=== PATIENT | female | born 1945 | race Caucasian/White ===

== ENCOUNTER 2023-09-03 14:21 | Emergency (ER) | payer MEDICARE, SELFPAY ==
[2023-09-03 14:34] VITALS: BP 112/90; PULSE 67; RESP 16; TEMP 36.5; O2SAT 98
--- NOTE | 2023-09-03 14:35 | ED.ANIMALBIT ---
HPI - Animal Bite General Chief Complaint: Wound/Laceration Stated Complaint: Dog Bite/Right Heel Source: patient and RN notes reviewed History of Present Illness HPI narrative: 78 yo F presents to urgent care with complaints of a dog bite to her left heel. Pt states night, her dog bit her heel. Pt states her dog sleeps with them and she has restless leg syndrome and she thinks she may have kicked him in her sleep. Pt has been soaking the wound and using a topical OTC ointment on it. Pt is UTD on her Tdap and the dog is UTD on his shots. Related Data Home Medications Medication Instructions Recorded Confirmed cholecalciferol (vitamin D3) 1,250 1,250 mcg PO DIRECTED 09/03/23 09/03/23 mcg (50,000 unit) capsule clonazepam 0.5 mg tablet 0.5 mg PO DIRECTED 09/03/23 09/03/23 hydrochlorothiazide 25 mg tablet 25 mg PO DIRECTED 09/03/23 09/03/23 meclizine 25 mg tablet 25 mg PO DIRECTED 09/03/23 09/03/23 metoprolol succinate 50 mg 50 mg PO DIRECTED 09/03/23 09/03/23 tablet,extended release 24 hr potassium chloride 10 mEq 10 meq PO DIRECTED 09/03/23 09/03/23 tablet,extended release venlafaxine 75 mg capsule,extended 75 mg PO DIRECTED 09/03/23 09/03/23 release 24 hr Allergies Allergy/AdvReac Type Severity Reaction Status Date / Time No Known Allergies Allergy Verified 09/03/23 14:40 Review of Systems Review of Systems: CONSTITUTIONAL: Denies fever, chills, or sweats. EYES: Denies visual changes, redness, or discharge. ENT: Denies otalgia and sore throat CARDIOVASCULAR: Denies chest pain, palpitations, or edema. RESPIRATORY: Denies cough or dyspnea. GASTROINTESTINAL: Denies abdominal pain, nausea, vomiting, or diarrhea. GENITOURINARY: Denies dysuria or hematuria. SKIN: dog bite to left heel MUSCULOSKELETAL: Denies back pain, joint pain, or myalgia. NEUROLOGIC: Denies headache, numbness, or weakness. Pertinent positives per HPI. PMFSH Comments At the time of my signature, I reviewed and agree with the nursing past medical, surgical, social, and family history. There is no relevant family history pertinent to the patient complaint. Exam Narrative: GENERAL: This is a well-nourished, well-developed patient, in no apparent distress. HEAD: normocephalic, atraumatic. EYES: Sclera clear/white. Vision is grossly intact. EARS: External ears normal, auditory canals clear and without drainage. Hearing grossly intact. NOSE: External nose normal with no obvious nasal discharge, nares without redness, no rhinorrhea. NECK: Neck supple, non-tender without lymphadenopathy, masses or thyromegaly. CARDIOVASCULAR: Regular rate and rhythm without murmurs, gallops, or rubs. RESPIRATORY: Clear to auscultation. Breath sounds equal bilaterally. No wheezes, rales, or rhonchi. SKIN: 1 cm abrasion to right posterior heel with 0.5 cm of dark erythema surrounding wound and 3 cm area of bottom liquor attendant erythema surrounding that. no drainage or area of fluctuance. NEURO: awake, alert, and oriented to person, place and time. There were no obvious focal neurologic abnormalities. EXTREMITIES: No clubbing, cyanosis, or edema. No joint tenderness, effusion, or edema noted. Course Course Level of Care: Express Care Visit Vital Signs Vital signs: reviewed MDM - Animal Bite MDM Narrative Medical decision making narrative: Monitor the areas of concern and if you notice any signs of infection including drainage, redness, or increased pain, go to the ER to be evaluated for worsening cellulitis or further infection. Take your antibiotic as directed. 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 Differential Diagnosis Differential diagnosis: Likely bite by animal, dog bite, rabies contact and other (cellulitis) Critical Care Time Critical Care Time Critical Care Time: No Discharge Plan Discharge Clinical Impression: Dog bite Qualifiers: Encounter type: initial encounter Qualified Code(s): W54.0XXA - Bitten by do
== END 2023-09-03 14:49 | disposition home or self-care (01) ==
PROVIDERS: Emergency Provider Nurse Practitioner Family
DX: L03.115 Cellulitis of right lower limb (principal); Z79.899 Other long term (current) drug therapy; W54.0XXA Bitten by dog, initial encounter
CPT/HCPCS: 99213; G0463